=== PATIENT | female | born 1970 | race Caucasian/White ===

== ENCOUNTER → 2018-04-30 09:40 | Outpatient (CLI) | payer OTHER, SELFPAY ==
--- NOTE | 2018-04-30 | DI.RAD.S_ITS ---
PROCEDURE: XR WRIST LT 2V INDICATIONS: 47 year-old female with bilateral hand and wrist arthropathy. TECHNIQUE: 2 views of the wrist were acquired. COMPARISON: None. FINDINGS: Bones: There is mild first carpometacarpal joint degeneration. No bony erosions. No periarticular osteopenia. No fractures or dislocations. No suspicious bony lesions. Scaphoid view: Not requested. Soft tissues: No suspicious soft tissue calcifications. IMPRESSION: 1. Mild first carpometacarpal joint degeneration. 2. No radiographic evidence for inflammatory arthritides of the left wrist. Dictated by: Amilcar Houser M.D. on 04/30/2018 at 11:03 Approved by: Amilcar Houser M.D. on 04/30/2018 at 11:04
--- NOTE | 2018-04-30 | DI.RAD.S_ITS ---
PROCEDURE: XR HAND RT 2V INDICATIONS: 47 year-old female with bilateral wrist and hand arthropathy. TECHNIQUE: 2 views of the hand(s) acquired. COMPARISON: None. FINDINGS: Bones: There is normal bony alignment. No bony erosions or joint narrowing. No osteophyte formation. No fractures or dislocations. Carpal bones are normally aligned. No suspicious bony lesions. Soft tissues: No suspicious soft tissue calcifications. IMPRESSION: No radiographic evidence for inflammatory arthritides of the right hand and wrist. Dictated by: Amilcar Houser M.D. on 04/30/2018 at 10:59 Approved by: Amilcar Houser M.D. on 04/30/2018 at 11:01
--- NOTE | 2018-04-30 | DI.RAD.S_ITS ---
PROCEDURE: XR HAND LT 2V INDICATIONS: 47 year-old female with bilateral hand and wrist arthropathy. TECHNIQUE: 2 views of the hand(s) acquired. COMPARISON: None. FINDINGS: Bones: There is normal bony alignment. There is mild first carpometacarpal joint degeneration. No bony erosions. No periarticular osteopenia. No fractures or dislocations. Carpal bones are normally aligned. No suspicious bony lesions. Soft tissues: No suspicious soft tissue calcifications. IMPRESSION: 1. Mild first carpometacarpal joint degeneration. 2. No radiographic evidence for inflammatory arthritides of the left hand and wrist. Dictated by: Amilcar Houser M.D. on 04/30/2018 at 11:02 Approved by: Amilcar Houser M.D. on 04/30/2018 at 11:03
--- NOTE | 2018-04-30 | DI.RAD.S_ITS ---
PROCEDURE: XR WRIST RT 2V INDICATIONS: 47 year-old female with bilateral hand and wrist arthropathy. TECHNIQUE: 2 views of the wrist were acquired. COMPARISON: None. FINDINGS: Bones: No fractures or dislocations. No periarticular osteopenia. No bony erosions or joint narrowing. No suspicious bony lesions. Scaphoid view: Not requested. Soft tissues: No suspicious soft tissue calcifications. IMPRESSION: No radiographic evidence for inflammatory arthritides of the right wrist. Dictated by: Amilcar Houser M.D. on 04/30/2018 at 11:01 Approved by: Amilcar Houser M.D. on 04/30/2018 at 11:02
[2018-04-30 11:56] LABS: Add Manual Diff / Slide Review NO; Basophils Percent Auto 0.7 % (0-2); C-Reactive Protein Quant 0.5 mg/dL (<1.0); Cholesterol 258 mg/dL (140-199); Eosinophils Percent Auto 2.9 % (2-4); HDL Cholesterol 74 mg/dL (40-60); Hematocrit 41.9 % (36-46); Hemoglobin 14.2 g/dL (12.0-16.0); LDL Cholesterol Calculated 152 mg/dL (<100); Lymphocytes Percent Auto 27.2 % (25-40); Mean Corpuscular HGB Conc 33.9 % (30-36); Mean Corpuscular Hemoglobin 29.5 PG (26-34); Monocytes Percent Auto 7.7 % (3-14); Neutrophils Absolute Auto 4000 /uL (3000-5900); Neutrophils Percent Auto 61.5 % (50-75); Platelet Count 322 X10^3/uL (150-400); Red Blood Cell Count 4.82 X10^6/uL (4.0-5.2); Red Cell Distribution Width 13.6 % (11.6-14.8); Triglycerides 162 mg/dL (35-150); White Blood Cell Count 6.4 X10^3/uL (4.5-11.0)
[2018-04-30 12:03] LABS: Free T4, Direct Thyroxine 0.92 ng/dL (0.78-2.19)
[2018-04-30 12:17] LABS: Thyroid Stimulating Hormone 0.68 uIU/mL (0.47-4.68)
[2018-05-02 13:40] LABS: Alanine Aminotransferase 37 IU/L (9-52); Albumin 3.7 g/dL (3.5-5.0); Albumin Globulin Ratio 1.2 (1.0-2.8); Alkaline Phosphatase 113 U/L (38-126); Aspartate Aminotransferase 29 IU/L (14-36); BUN Creatinine Ratio 22.9 (6-22); Bilirubin Total 0.6 mg/dL (0.2-1.3); Blood Urea Nitrogen 16 mg/dL (7-17); Calcium 9.2 mg/dL (8.4-10.2); Carbon Dioxide 25 mmol/L (22-32); Chloride 103 mmol/L (98-107); Estimated Glomerular Filt Rate > 60.0 mL/min (>60); Globulin 3.2 g/dL (1.7-4.1); Glucose 105 mg/dL (70-100); HEMOLYSIS < 15 (0-50); Potassium 4.7 mmol/L (3.4-5.1); Sodium 142 mmol/L (137-145); Total Protein 6.9 g/dL (6.3-8.2)
== END ==
PROVIDERS: PCP Nurse Practitioner Family; Visit Provider Nurse Practitioner Family
DX: M12.9 Arthropathy, unspecified (principal); M79.646 Pain in unspecified finger(s); E78.5 Hyperlipidemia, unspecified; Z00.01 Encounter for general adult medical examination with abnormal findings
CPT/HCPCS: 36415; 73100; 73120; 80053; 80061; 83516; 84439; 84443; 85025; 86140; 86200; 86431

== ENCOUNTER → 2019-03-24 08:17 | Outpatient (CLI) | payer OTHER, SELFPAY ==
[2019-03-24 08:55] LABS: Add Manual Diff / Slide Review NO; Basophils Absolute Auto 100 /uL (0-100); Basophils Percent Auto 0.9 % (0-2); Eosinophils Absolute Auto 100 /uL (0-450); Eosinophils Percent Auto 1.8 % (2-4); Hematocrit 42.1 % (36-46); Hemoglobin 13.9 g/dL (12.0-16.0); Lymphocytes Absolute Auto 1500 /uL (1100-4500); Lymphocytes Percent Auto 19.5 % (25-40); Mean Corpuscular HGB Conc 33.1 % (30-36); Mean Corpuscular Hemoglobin 28.9 PG (26-34); Mean Corpuscular Volume 87.3 fL (80-100); Monocytes Absolute Auto 500 /uL (0-900); Monocytes Percent Auto 7.2 % (3-14); Neutrophils Absolute Auto 5400 /uL (1500-7000); Neutrophils Percent Auto 70.6 % (50-75); Platelet Count 288 X10^3/uL (150-400); Red Blood Cell Count 4.82 X10^6/uL (4.0-5.2); Red Cell Distribution Width 13.2 % (11.6-14.8); White Blood Cell Count 7.6 X10^3/uL (4.5-11.0)
[2019-03-24 09:08] LABS: Hemoglobin A1C% w Est Avg Glu 5.4 % (4.0-6.0)
[2019-03-24 09:17] LABS: Alanine Aminotransferase 20 IU/L (9-52); Albumin 3.9 g/dL (3.5-5.0); Albumin Globulin Ratio 1.3 (1.0-2.8); Alkaline Phosphatase 93 U/L (38-126); Aspartate Aminotransferase 28 IU/L (14-36); BUN Creatinine Ratio 17.8 (6-22); Bilirubin Total 0.4 mg/dL (0.2-1.3); Blood Urea Nitrogen 16 mg/dL (7-17); Calcium 8.8 mg/dL (8.4-10.2); Carbon Dioxide 27 mmol/L (22-32); Chloride 102 mmol/L (98-107); Cholesterol 226 mg/dL (140-199); Estimated Glomerular Filt Rate > 60.0 mL/min (>60); Globulin 3.1 g/dL (1.7-4.1); Glucose 110 mg/dL (70-100); HDL Cholesterol 52 mg/dL (40-60); HEMOLYSIS < 15 (0-50); LDL Cholesterol Calculated 136 mg/dL (<100); Sodium 138 mmol/L (137-145); Triglycerides 191 mg/dL (35-150)
[2019-03-24 09:21] LABS: High Sensitivity CRP - Cardiac 11.8 mg/L (1.0-3.0)
[2019-03-24 09:34] LABS: Free T4, Direct Thyroxine 1.04 ng/dL (0.78-2.19)
== END ==
PROVIDERS: Family Provider Ophthalmology; PCP Nurse Practitioner Family; Visit Provider Nurse Practitioner Family
DX: I10 Essential (primary) hypertension (principal); H40.9 Unspecified glaucoma; R23.2 Flushing
CPT/HCPCS: 36415; 80053; 80061; 83036; 84439; 84443; 85025; 86140

== ENCOUNTER → 2019-07-27 17:24 | Outpatient (CLI) | payer OTHER, SELFPAY ==
--- NOTE | 2019-07-27 | DI.MG.S_ITS ---
BILATERAL DIGITAL SCREENING MAMMOGRAM 3D/2D WITH CAD: 07/27/2019 CLINICAL: Routine screening. Family history of breast cancer. Comparison is made to exams dated: 07/15/2017 mammogram, 06/29/2016 mammogram, and 06/21/2015 mammogram - [facility]. The tissue of both breasts is heterogeneously dense. This may lower the sensitivity of mammography. Current study was also evaluated with a Computer Aided Detection (CAD) system. No significant masses, calcifications, or other findings are seen in either breast. There has been no significant interval change. IMPRESSION: NEGATIVE There is no mammographic evidence of malignancy. A 1 year screening mammogram is recommended. This exam was interpreted at Station ID: [id number]. NOTE: For mammograms, a report in lay terms will be sent to the patient. Approximately 15% of breast malignancies will not be visualized mammographically. In the management of a palpable breast mass, a negative mammogram must not discourage biopsy of a clinically suspicious lesion. Electronically Signed By: Sushil foster/rima:07/28/2019 10:54:16 letter sent: Normal Exam ACR BI-RADS Category 1: Negative 3341F
== END ==
PROVIDERS: Family Provider Ophthalmology; PCP Nurse Practitioner Family; Visit Provider Nurse Practitioner Family
DX: Z12.31 Encounter for screening mammogram for malignant neoplasm of breast (principal); Z80.3 Family history of malignant neoplasm of breast
CPT/HCPCS: 77063; 77067

== ENCOUNTER → 2020-08-19 17:41 | Outpatient (CLI) | payer OTHER, SELFPAY ==
--- NOTE | 2020-08-19 | DI.MG.S_ITS ---
BILATERAL DIGITAL SCREENING MAMMOGRAM 3D/2D WITH CAD: 08/19/2020 CLINICAL: Routine screening. Family history of breast cancer. Comparison is made to exams dated: 07/27/2019 mammogram, 07/15/2017 mammogram, 06/29/2016 mammogram, and 06/21/2015 mammogram - [facility]. The tissue of both breasts is heterogeneously dense. This may lower the sensitivity of mammography. Current study was also evaluated with a Computer Aided Detection (CAD) system. No significant masses, calcifications, or other findings are seen in either breast. There has been no significant interval change. IMPRESSION: NEGATIVE There is no mammographic evidence of malignancy. A 1 year screening mammogram is recommended. This exam was interpreted at Station ID: [id number]. NOTE: For mammograms, a report in lay terms will be sent to the patient. Approximately 15% of breast malignancies will not be visualized mammographically. In the management of a palpable breast mass, a negative mammogram must not discourage biopsy of a clinically suspicious lesion. Electronically Signed By: Kvng cid/rima:08/20/2020 07:58:57 letter sent: Normal Exam ACR BI-RADS Category 1: Negative 3341F
== END ==
PROVIDERS: Family Provider Ophthalmology; PCP Physician Assistant; Referring Provider Nurse Practitioner Family; Visit Provider Nurse Practitioner Family
DX: Z12.31 Encounter for screening mammogram for malignant neoplasm of breast (principal); Z80.3 Family history of malignant neoplasm of breast
CPT/HCPCS: 77063; 77067

== ENCOUNTER → 2021-09-20 11:10 | Outpatient (CLI) | payer OTHER, SELFPAY ==
--- NOTE | 2021-09-20 | DI.MG.S_ITS ---
BILATERAL DIGITAL SCREENING MAMMOGRAM 3D/2D WITH CAD: 09/20/2021 CLINICAL: Routine screening. Family history of breast cancer. Comparison is made to exams dated: 08/19/2020 mammogram, 07/27/2019 mammogram, and 07/15/2017 mammogram - [facility]. The tissue of both breasts is heterogeneously dense. This may lower the sensitivity of mammography. Current study was also evaluated with a Computer Aided Detection (CAD) system. No significant masses, calcifications, or other findings are seen in either breast. There has been no significant interval change. IMPRESSION: NEGATIVE There is no mammographic evidence of malignancy. A 1 year screening mammogram is recommended. This exam was interpreted at Station ID: [id number]. NOTE: For mammograms, a report in lay terms will be sent to the patient. Approximately 15% of breast malignancies will not be visualized mammographically. In the management of a palpable breast mass, a negative mammogram must not discourage biopsy of a clinically suspicious lesion. Electronically Signed By: Haja becker/rima:09/22/2021 09:06:56 letter sent: Normal Exam ACR BI-RADS Category 1: Negative 3341F
== END ==
PROVIDERS: Family Provider Ophthalmology; PCP Physician Assistant; Referring Provider Physician Assistant; Visit Provider Physician Assistant
DX: Z12.31 Encounter for screening mammogram for malignant neoplasm of breast (principal); Z80.3 Family history of malignant neoplasm of breast
CPT/HCPCS: 77063; 77067

== ENCOUNTER → 2022-12-09 07:35 | Outpatient (CLI) | payer OTHER, SELFPAY ==
--- NOTE | 2022-12-09 | DI.MG.S_ITS ---
BILATERAL DIGITAL SCREENING MAMMOGRAM 3D/2D WITH CAD: 12/09/2022 CLINICAL: Routine screening. Family history of breast cancer. Comparison is made to exams dated: 09/20/2021 mammogram, 08/19/2020 mammogram, and 07/27/2019 mammogram - [facility]. Both breasts are heterogeneously dense, which may obscure small masses (category c / 51-75% glandular tissue). Current study was also evaluated with a Computer Aided Detection (CAD) system. No significant masses, calcifications, or other findings are seen in either breast. There has been no significant interval change. IMPRESSION: NEGATIVE There is no mammographic evidence of malignancy. A 1 year screening mammogram is recommended. Based on the Tyrer Cuzick model (a risk assessment model) the patient's lifetime risk is 10.8% and her 10 year risk is 2.8%. According to the ACR, ACS, and NCCN guidelines, an annual breast MRI exam along with mammogram is recommended if the patient's lifetime risk is 20% or greater. This exam was interpreted at Station ID: [id number]. NOTE: For mammograms, a report in lay terms will be sent to the patient. Approximately 15% of breast malignancies will not be visualized mammographically. In the management of a palpable breast mass, a negative mammogram must not discourage biopsy of a clinically suspicious lesion. Electronically Signed By: Sujey aguayo/rima:12/09/2022 12:42:14 letter sent: Normal Exam ACR BI-RADS Category 1: Negative 3341F
== END ==
PROVIDERS: Family Provider Ophthalmology; PCP Physician Assistant; Referring Provider Physician Assistant; Visit Provider Physician Assistant
DX: Z12.31 Encounter for screening mammogram for malignant neoplasm of breast (principal); Z80.3 Family history of malignant neoplasm of breast
CPT/HCPCS: 77063; 77067

== ENCOUNTER 2023-09-13 12:27 | Day surgery (SDC) | payer OTHER, SELFPAY ==
--- NOTE | 2023-09-13 | PATH_ITS ---
[facility] Accession Number: [id number] No. of containers..01 Tissue . 01 Material submitted: . colon - RECTO SIGMOID EROSION . 01 Diagnosis: Rectosigmoid Colon, Erosion: Active colitis with erosion. Please see comment. Negative for granulomas, dysplasia, and malignancy. MRV 09/21/2023 1659 Local . 01 Comment: The rectosigmoid biopsies show mildly active colitis with denuded surface epithelium. No obvious viral cytopathic effects or parasitic organisms are identified. Features suggestive of chronic colitis are not present including no branched crypt architecture or lymphoplasmacytosis in the lamina propria. The differential diagnosis includes infection, medication-related mucosal injury, trauma/prolapse/diverticular disease-associated colitis, idiopathic inflammatory bowel disease, and early ischemia-type changes. . 01 Electronically signed: . Kayce Carrillo MD, Pathologist NPI- [id number] . 01 Gross description: . RECTO SIGMOID EROSION: Received in formalin is 1 fragment(s) of woodard, soft tissue measuring 0.2 x 0.2 x 0.1 cm submitted entirely in 1 cassette(s) /MISBAH 09/15/2023 0021 Local . 01 Pathologist provided ICD-10: R10.9 . 01 CPT . 710457 Specimen Comment: A courtesy copy of this report has been sent to [phone] Performed at: 01 [facility] [address] [place] [address], [place], [place] [id number] MD Sarthak Bain MD Phone: [phone]
[2023-09-13] MEDS: LACTATED RINGERS 1,000 ML 42 ML IV (13:02)
--- NOTE | 2023-09-13 13:11 | PM.HP.1 ---
History of Present Illness History of Present Illness Date Patient Seen: 09/13/23 Time Patient Seen: 13:11 Date of Onset of Symptoms: 09/13/23 Chief complaint: SDC Narrative: Here for colonoscopy for colon cancer screening. No prior colonoscopies. Asymptomatic. Meds Home Medications and Allergies Home Medications Medication Instructions Recorded Confirmed Type losartan 50 mg-hydrochlorothiazide 1 tab PO DAILY 09/13/23 09/13/23 History 12.5 mg tablet Allergies Allergy/AdvReac Type Severity Reaction Status Date / Time No Known Drug Allergies Allergy Verified 09/13/23 13:10 Review of Systems Review of Systems ROS: Yes All systems reviewed with the patient and are negative except as otherwise documented Exam Const General: cooperative HENMT Head: normal to inspection Eyes General: appearance normal, both eyes and all related structures Neck Neck: normal visual inspection Chest Chest: normal inspection of the chest Resp Effort & Inspection: normal respiratory effort Cardio Rate: regular rate GI Inspection: normal to inspection Skin General: no rashes or lesions noted Neuro General: patient alert and patient awake Extrem General: normal to inspection and no pedal edema Psych Appearance: grossly normal Assessment & Plan Assessment & Plan narrative: 53-year-old female indicated for colon cancer screening. Colonoscopy is pursued today.
[2023-09-13 13:12] VITALS: BMI 31.5
--- NOTE | 2023-09-13 13:12 | PM.PREOP ---
Pre-operative Note Interval Note History & Physical reviewed/Exam performed by Physician: Yes Changes to H&P: No ASA Class (for procedural sedation): II
[2023-09-13 13:17] VITALS: BP 137/76; PULSE 88; RESP 16; TEMP 36.8; O2SAT 98
--- NOTE | 2023-09-13 14:37 | PM.OP.COLON ---
Operative Date/Time/Diagnoses Date of procedure: 09/13/23 Time of procedure: 14:37 Pre-op diagnosis: Colon cancer screening Post-op diagnosis: same Procedure & Clinicians Study performed: Colonoscopy with biopsy Same procedure as scheduled: Yes Indications: Colon cancer screening Surgeon: Johnathan Holman Procedure Notes SCOAP/Timeout: Done Procedure in detail: After the risks and benefits were explained, written and verbal informed consent was obtained. The patient was brought into the procedure room and placed into the left lateral decubitus position. Please see anesthesia notes for sedation details. Digital rectal examination was accomplished. The scope was introduced into the patient and advanced under direct visualization to the cecum as identified by the appendiceal orifice and ileocecal valve. The scope was slowly withdrawn to carefully examine the mucosa for any defects or lesions. Comprehensive imaging was accomplished throughout the rectum including the dentate line. The colon was decompressed, the scope was then removed from the patient who tolerated the procedure well. Pediatric colonoscope Bowel prep adequate Scope withdrawal time: 11 minutes Sedation minutes: 21 Complications: none Impression: There was an erosion in the rectosigmoid region of uncertain etiology so this was targeted for biopsy. Otherwise the colonic mucosa was unremarkable throughout. No significant polyps mass lesions or inflammatory features were identified. The terminal ileum was interrogated and appeared normal. Endoscopic diagnosis 1. Rectosigmoid erosion of uncertain clinical significance -biopsied 2. Otherwise visually unremarkable colonoscopy Post-procedure Plan for aftercare: 1. Await histopathology. 2. As long as there are no concerning histologic features, colonoscopy will likely be suggested for 10 years for screening purposes Disposition: PACU
[2023-09-13 14:40] VITALS: BP 97/59; PULSE 78; RESP 12; TEMP 37.1; O2SAT 98
[2023-09-13 14:46] VITALS: BP 104/60; PULSE 69; RESP 21; TEMP 37; O2SAT 98
== END 2023-09-13 15:02 | disposition home or self-care (01) ==
PROVIDERS: Family Provider Ophthalmology; PCP Physician Assistant; Referring Provider Internal Medicine Gastroenterology; Visit Provider Internal Medicine Gastroenterology
PROC: 0DJD8ZZ Inspection of Lower Intestinal Tract, Via Natural or Artificial Opening Endoscopic (ICD-10-PCS; CPT 45378; principal; 2023-09-13 13:30)
DX: Z12.11 Encounter for screening for malignant neoplasm of colon (principal); K52.89 Other specified noninfective gastroenteritis and colitis
CPT/HCPCS: 45380; J2704

== ENCOUNTER → 2023-12-31 17:07 | Outpatient (CLI) | payer OTHER, SELFPAY ==
--- NOTE | 2023-12-31 | DI.MG.S_ITS ---
BILATERAL DIGITAL SCREENING MAMMOGRAM 3D/2D WITH CAD: 12/31/2023 CLINICAL: Routine screening. Comparison is made to exams dated: 12/09/2022 mammogram, 09/20/2021 mammogram, and 08/19/2020 mammogram - [facility]. Both breasts are heterogeneously dense, which may obscure small masses (category c / 51-75% glandular tissue). Current study was also evaluated with a Computer Aided Detection (CAD) system. No significant masses, calcifications, or other findings are seen in either breast. There has been no significant interval change. IMPRESSION: NEGATIVE There is no mammographic evidence of malignancy. A 1 year screening mammogram is recommended. Based on the Tyrer Cuzick model (a risk assessment model) the patient's lifetime risk is 9.7% and her 10 year risk is 2.6%. According to the ACR, ACS, and NCCN guidelines, an annual breast MRI exam along with mammogram is recommended if the patient's lifetime risk is 20% or greater. This exam was interpreted at Station ID: [id number]. NOTE: For mammograms, a report in lay terms will be sent to the patient. Approximately 15% of breast malignancies will not be visualized mammographically. In the management of a palpable breast mass, a negative mammogram must not discourage biopsy of a clinically suspicious lesion. Electronically Signed By: Getachew mayer/rima:01/03/2024 13:34:49 letter sent: Normal Exam ACR BI-RADS Category 1: Negative 3341F
== END ==
PROVIDERS: Family Provider Ophthalmology; PCP Physician Assistant; Referring Provider Physician Assistant; Visit Provider Physician Assistant
DX: Z12.31 Encounter for screening mammogram for malignant neoplasm of breast (principal); R92.333 Mammographic heterogeneous density, bilateral breasts
CPT/HCPCS: 77063; 77067